=== PATIENT | female | born 1985 | race Caucasian/White ===

== ENCOUNTER 2021-11-19 14:25 | Emergency (ER) | payer OTHER ==
[2021-11-19 14:36] VITALS: PULSE 78; TEMP 98.9
--- NOTE | 2021-11-19 15:52 | ED ---
General Adult HPI - General Chief complaint: Vaginal Bleeding Stated complaint: Female Time Seen by Provider: 11/19/21 15:10 Source: patient Mode of arrival: ambulatory - History of Present Illness Initial comments: This 36-year-old female presents to the emergency department with vaginal bleeding during sexual intercourse x 1week. She states last Monday she took plan B which was 24 hours after having unprotected sexual intercourse. Patient states since last she has been experiencing vaginal bleeding only during intercourse. She states yesterday she did have a little bit of bleeding during the day as well, however she denies any clots. Patient denies any heavy bleeding/clots. Patient states she does have a history of substance abuse and has not had normal menstrual cycles up until about 5 months ago when she became clean. Patient denies having any births in her past but states she has been 2 times and had 2 abortions, one at 10 weeks gestation and one at 8 weeks gestation. Patient denies any abdominal pain, cramping, or vaginal pain. Patient denies any vaginal pain during sexual intercourse. Patient denies any chest pain, shortness of breath, abdominal pain, nausea, vomiting, change in bowel or bladder, change in appetite, headache, lightheadedness, dizziness. - Related Data Allergies Allergy/AdvReac Type Severity Reaction Status Date / Time amoxicillin Allergy Rash/Hives Verified 11/19/21 14:36 Review of Systems ROS Statement: Those systems with pertinent positive or pertinent negative responses have been documented in the HPI. ROS Other: All systems not noted in ROS Statement are negative. Past Medical History Past Medical History: No Reported History, Pulmonary Embolus (PE) History of Any Multi-Drug Resistant Organisms: MRSA Date of last positivie culture/infection: 2019 Past Surgical History: Tonsillectomy Past Psychological History: No Psychological Hx Reported Smoking Status: Never smoker Past Alcohol Use History: None Reported Past Drug Use History: None Reported General Exam General appearance: alert, in no apparent distress Head exam: Present: atraumatic, normocephalic, normal inspection Eye exam: Present: normal appearance, PERRL, EOMI. Absent: scleral icterus, conjunctival injection, periorbital swelling Pupils: Present: normal accommodation ENT exam: Present: normal exam, mucous membranes moist Neck exam: Present: normal inspection, full ROM. Absent: tenderness, meningismus, lymphadenopathy Respiratory exam: Present: normal lung sounds bilaterally. Absent: respiratory distress, wheezes, rales, rhonchi, stridor Cardiovascular Exam: Present: regular rate, normal rhythm, normal heart sounds. Absent: systolic murmur, diastolic murmur, rubs, gallop, clicks GI/Abdominal exam: Present: soft, normal bowel sounds. Absent: distended, tenderness, guarding, rebound, rigid External exam: Present: normal external exam. Absent: erythema, swelling, lesions, lacerations, ecchymosis Speculum exam: Present: normal speculum exam, vaginal bleeding (Small amount of light brown vaginal bleeding and vaginal canal.) By manual exam: Present: normal by manual exam. Absent: cervical motion tenderness Extremities exam: Present: normal inspection, full ROM, normal capillary refill. Absent: tenderness, pedal edema, joint swelling, calf tenderness Back exam: Present: normal inspection, full ROM. Absent: CVA tenderness (R), CVA tenderness (L), paraspinal tenderness, vertebral tenderness Neurological exam: Present: alert, oriented X3, CN II-XII intact, normal gait Psychiatric exam: Present: normal affect, normal mood Skin exam: Present: warm, dry, intact, normal color. Absent: rash Course Vital Signs 11/19/21 11/19/21 14:32 17:19 Temperature 98.9 F Pulse Rate 78 78 Respiratory 16 18 Rate Blood Pressure 116/70 118/75 O2 Sat by Pulse 99 97 Oximetry Medical Decision Making - Medical Decision Making This 36-year-old female presents emergency Department with vaginal bleeding during sexual intercourse times one week. Hemoglobin 13.4, hematocrit 41.7, urine without any nitrites, squamous epithelial cells 8 rare mucus and rare amorphous sediment. Urine hCG not detected. On speculum exam there was a small amount of light brown vaginal bleeding in the canal. No cervical motion tenderness or adnexal tenderness. Cervical os is closed without any erythema or lesions. Patient to follow up with her primary care provider next 24-48 hours. Strict return precautions were discussed. Patient sent home in stable condition. Patient verbally agree to plan. Patient was instructed to have pelvic rest until assessed by primary care or [employer]. Case discussed with my attending, . - Lab Data Result diagrams: 11/19/21 15:42 Lab Results 11/19/21 11/19/21 11/19/21 Range/Units 15:42 15:44 15:44 WBC 10.5 (3.8-10.6) k/uL RBC 4.54 (3.80-5.40) m/uL Hgb 13.4 (11.4-16.0) gm/dL Hct 41.7 (34.0-46.0) % MCV 91.8 (80.0-100.0) fL MCH 29.6 (25.0-35.0) pg MCHC 32.2 (31.0-37.0) g/dL RDW 12.5 (11.5-15.5) % Plt Count 302 (150-450) k/uL MPV 6.9 Neutrophils % 65 % Lymphocytes % 27 % Monocytes % 4 % Eosinophils % 2 % Basophils % 1 % Neutrophils # 6.8 (1.3-7.7) k/uL Lymphocytes # 2.8 (1.0-4.8) k/uL Monocytes # 0.4 (0-1.0) k/uL Eosinophils # 0.2 (0-0.7) k/uL Basophils # 0.1 (0-0.2) k/uL Urine Color Urine Appearance (Clear) Urine pH (5.0-8.0) Ur Specific Henley (1.001-1.035) Urine Protein (Negative) Urine Glucose (UA) (Negative) Urine Ketones (Negative) Urine Blood (Negative) Urine Nitrite (Negative) Urine Bilirubin (Negative) Urine Urobilinogen (<2.0) mg/dL Ur Leukocyte Esterase (Negative) Urine RBC (0-5) /hpf Urine WBC (0-5) /hpf Ur Squamous Epith Cells (0-4) /hpf Amorphous Sediment (None) /hpf Urine Mucus (None) /hpf Urine HCG, Qual Not Detected (Not Detectd) Trichomonas Ag (Rapid) Negative (Negative) 11/19/21 Range/Units 15:44 WBC (3.8-10.6) k/uL RBC (3.80-5.40) m/uL Hgb (11.4-16.0) gm/dL Hct (34.0-46.0) % MCV (80.0-100.0) fL MCH (25.0-35.0) pg MCHC (31.0-37.0) g/dL RDW (11.5-15.5) % Plt Count (150-450) k/uL MPV Neutrophils % % Lymphocytes % % Monocytes % % Eosinophils % % Basophils % % Neutrophils # (1.3-7.7) k/uL Lymphocytes # (1.0-4.8) k/uL Monocytes # (0-1.0) k/uL Eosinophils # (0-0.7) k/uL Basophils # (0-0.2) k/uL Urine Color Yellow Urine Appearance Cloudy H (Clear) Urine pH 7.5 (5.0-8.0) Ur Specific Henley 1.016 (1.001-1.035) Urine Protein Negative (Negative) Urine Glucose (UA) Negative (Negative) Urine Ketones Negative (Negative) Urine Blood Negative (Negative) Urine Nitrite Negative (Negative) Urine Bilirubin Negative (Negative) Urine Urobilinogen <2.0 (<2.0) mg/dL Ur Leukocyte Esterase Negative (Negative) Urine RBC 1 (0-5) /hpf Urine WBC 2 (0-5) /hpf Ur Squamous Epith Cells 8 H (0-4) /hpf Amorphous Sediment Rare H (None) /hpf Urine Mucus Rare H (None) /hpf Urine HCG, Qual (Not Detectd) Trichomonas Ag (Rapid) (Negative) Disposition Clinical Impression: Vaginal bleeding Disposition: HOME SELF-CARE Condition: Stable Instructions (If sedation given, give patient instructions): Dysmenorrhea (ED) Additional Instructions: Please follow-up with your primary care provider in next 24-48 hours. Return to the emergency department with any new, worsening, or concerning symptoms. Is patient prescribed a controlled substance at d/c from ED?: No Referrals: None,Stated [Primary Care Provider] - 1-2 days Reggie Obregon [STAFF PHYSICIAN] - 1-2 days Time of Disposition: 17:11
[2021-11-19 15:57] LABS: Basophils # (A) 0.1 k/uL (0-0.2); Basophils % (A) 1 %; Eosinophils # (A) 0.2 k/uL (0-0.7); Eosinophils % (A) 2 %; HCT 41.7 % (34.0-46.0); HGB 13.4 gm/dL (11.4-16.0); Lymphocytes # (A) 2.8 k/uL (1.0-4.8); Lymphocytes % (A) 27 %; MCH 29.6 pg (25.0-35.0); MCHC 32.2 g/dL (31.0-37.0); MCV 91.8 fL (80.0-100.0); Mean Platelet Volume 6.9; Monocytes # (A) 0.4 k/uL (0-1.0); Monocytes % (A) 4 %; Neutrophils # (A) 6.8 k/uL (1.3-7.7); Neutrophils % (A) 65 %; Platelet Count 302 k/uL (150-450); RBC 4.54 m/uL (3.80-5.40); RDW 12.5 % (11.5-15.5); WBC 10.5 k/uL (3.8-10.6)
[2021-11-19 16:01] LABS: Amorphous Sediment,Urine Rare /hpf; Appearance,Urine Cloudy (Clear); Bilirubin,Urine Negative (Negative); Blood,Urine Negative (Negative); Color,Urine Yellow; Glucose,Urine (UA) Negative (Negative); Ketones,Urine Negative (Negative); Leukocyte Esterase,Urine Negative (Negative); Mucus,Urine Rare /hpf; Nitrite,Urine Negative (Negative); PH, Urine 7.5 (5.0-8.0); Protein,Urine Negative (Negative); RBC,Urine 1 /hpf (0-5); Specific Gravity,Urine 1.016 (1.001-1.035); Squamous Epithelial Cell,Urine 8 /hpf (0-4); Urobilinogen,Urine <2.0 mg/dL (<2.0); WBC,Urine 2 /hpf (0-5)
[2021-11-19 17:20] VITALS: BP 118/75; RESP 18
== END 2021-11-19 17:20 | disposition home or self-care (01) ==
LOC: EC 14:25
DX: N93.9 Abnormal uterine and vaginal bleeding, unspecified (principal)
CPT/HCPCS: 36415; 81001; 81025; 85025; 87070; 87491; 87591; 87808; 99284